=== PATIENT | female | born 1995 | race American Indian/Alaskan Native ===

== ENCOUNTER 2018-05-27 06:55 | Emergency (ER) | payer BC ==
[2018-05-27 07:02] VITALS: BP 105/69; PULSE 100; RESP 18; TEMP 98.4; O2SAT 100
--- NOTE | 2018-05-27 07:53 | C.PDOC ---
History Of Present Illness 23 y/o female presents to ED with c/o "pins and needles" sensation to bilateral hands and feet for 1 month. Patient also complaints of irregularity on menses, states she is not getting menses every month. Patient denies injury, weakness, nausea, vomiting, fever, chills or any other complaints at this time. Time Seen by Provider: 05/27/18 07:28 Chief Complaint (Nursing): Finger,Hand,&Wrist History Per: Patient History/Exam Limitations: no limitations Onset/Duration Of Symptoms: Days Current Symptoms Are (Timing): Still Present Past Medical History Reviewed: Historical Data, Nursing Documentation, Vital Signs Vital Signs: Last Vital Signs Temp 98.4 F 05/27/18 07:00 Pulse 100 H 05/27/18 07:00 Resp 18 05/27/18 07:00 BP 105/69 05/27/18 07:00 Pulse Ox 100 05/27/18 08:59 - Medical History PMH: No Chronic Diseases Surgical History: No Surg Hx Family History: States: No Known Family Hx - Social History Hx Alcohol Use: Yes Hx Substance Use: No - Immunization History Hx Tetanus Toxoid Vaccination: No Hx Influenza Vaccination: No Hx Pneumococcal Vaccination: No Review Of Systems Constitutional: Negative for: Fever, Chills Gastrointestinal: Negative for: Nausea, Vomiting Musculoskeletal: Positive for: Hand Pain, Foot Pain Skin: Negative for: Rash Neurological: Negative for: Weakness, Numbness Physical Exam - Physical Exam Appears: Non-toxic, No Acute Distress Skin: Warm, Dry, No Rash Head: Atraumatic, Normacephalic Eye(s): bilateral: Normal Inspection Oral Mucosa: Moist Neck: Normal ROM, Supple Extremity: Tenderness (bilateral hands on palpation), Capillary Refill (<2 seconds), No Deformity, No Swelling Extremity: Bilateral: Normal ROM Pulses: Left Radial: Normal, Right Radial: Normal Neurological/Psych: Oriented x3, Normal Speech, Normal Motor, Normal Sensation ED Course And Treatment - Laboratory Results Result Diagrams: 05/27/18 08:25 05/27/18 08:25 Lab Interpretation: Normal O2 Sat by Pulse Oximetry: 100 (RA) Pulse Ox Interpretation: Normal Progress Note: Blood work, UA ordered. Motrin administered. On re-evaluation neuro intact Reassessment Condition: Improved Disposition Counseled Patient/Family Regarding: Studies Performed, Diagnosis - Disposition Referrals: 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 - Scribe Statement The provider has reviewed the documentation as recorded by the Scribconrado Sofia All medical record entries made by the Taylor were at my direction and personally dictated by me. I have reviewed the chart and agree that the record accurately reflects my personal performance of the history, physical exam, medical decision making, and the department course for this patient. I have also personally directed, reviewed, and agree with the discharge instructions and disposition.
[2018-05-27 08:29] LABS: BASO # 0.1 K/uL (0.0-0.2); BASO % 0.9 % (0.0-2.0); EOS # 0.1 K/uL (0.0-0.7); EOS % 1.9 % (0.0-4.0); HEMOGLOBIN 13.4 g/dL (11.0-16.0); LYMPH # 2.3 K/uL (1.0-4.3); LYMPH % 36.1 % (20.0-40.0); MEAN CELL VOLUME 89.8 fL (81.0-99.0); MEAN CORPUSCULAR HEMOGLOBIN 30.9 pg (27.0-31.0); MEAN CORPUSCULAR HGB CONC 34.4 g/dL (33.0-37.0); MEAN PLATELET VOLUME 8.3 fL (7.2-11.7); MONO # 0.6 K/uL (0.0-0.8); MONO % 8.9 % (0.0-10.0); NEUT # 3.3 K/uL (1.8-7.0); NEUT % 52.2 % (50.0-75.0); NRBC % 0.1 % (0.0-2.0); RBC 4.32 Mil/uL (3.80-5.20); RED CELL DISTRIBUTION WIDTH 13.7 % (11.5-14.5); WHITE BLOOD COUNT 6.3 K/uL (4.8-10.8)
[2018-05-27 08:36] LABS: HCG,QUALITATIVE URINE NEGATIVE (NEGATIVE)
[2018-05-27 08:42] LABS: SQUAMOUS EPITHIAL 10 /hpf (0-5); URINE BACTERIA RARE (<OCC); URINE BILIRUBIN NEGATIVE (NEGATIVE); URINE BLOOD NEGATIVE (NEGATIVE); URINE CLARITY Hazy (Clear); URINE COLOR Yellow (YELLOW); URINE GLUCOSE (UA) NORMAL (Normal); URINE LEUKOCYTE ESTERASE 2+ Leu/uL (Negative); URINE PROTEIN NEGATIVE (NEGATIVE)
[2018-05-27 08:43] LABS: BLOOD UREA NITROGEN 12 mg/dL (7-17); CALCIUM 9.8 mg/dl (8.6-10.4); GFR AFRICAN-AMERICAN > 60; GFR NON-AFRICAN AMERICAN > 60
== END 2018-05-27 09:27 | disposition home or self-care (01) ==
LOC: C.ER 06:55
DX: R20.2 Paresthesia of skin (principal)

== ENCOUNTER 2018-10-18 11:57 | Emergency (ER) | payer BC, OTHER ==
[2018-10-18 12:42] LABS: HCG,QUALITATIVE URINE NEGATIVE (NEGATIVE)
[2018-10-18 13:16] LABS: SQUAMOUS EPITHIAL 21 /hpf (0-5); URINE BACTERIA RARE (<OCC); URINE BILIRUBIN NEGATIVE (NEGATIVE); URINE BLOOD 1+ (NEGATIVE); URINE CLARITY Hazy (Clear); URINE COLOR Yellow (YELLOW); URINE GLUCOSE (UA) NORMAL (Normal); URINE LEUKOCYTE ESTERASE 3+ Leu/uL (Negative); URINE PROTEIN 1+ mg/dL (NEGATIVE)
--- NOTE | 2018-10-18 13:33 | C.PDOC ---
History Of Present Illness 23 y/o female presents to ED complaining of vaginal burning and thick white discharge for the last 2 days. States that she was seen by OBGYN one month ago and was diagnosed with bacterial vaginosis. Patient was treated with PO medications. States she was tested for STD which was negative. Denies dysuria, pelvic pain, or vaginal bleeding. Time Seen by Provider: 10/18/18 12:41 Chief Complaint (Nursing): Female Genitourinary History Per: Patient History/Exam Limitations: no limitations Onset/Duration Of Symptoms: Days Current Symptoms Are (Timing): Still Present Past Medical History Reviewed: Historical Data, Nursing Documentation, Vital Signs - Medical History PMH: Denies: Chronic Kidney Disease Family History: States: No Known Family Hx - Social History Hx Alcohol Use: Yes Hx Substance Use: No - Immunization History Hx Tetanus Toxoid Vaccination: No Hx Influenza Vaccination: No Hx Pneumococcal Vaccination: No Review Of Systems Genitourinary: Positive for: Vaginal Discharge (thick and white), Other (Vaginal burning). Negative for: Dysuria, Vaginal Bleeding, Pelvic Pain Physical Exam - Physical Exam Appears: Non-toxic, No Acute Distress Skin: Warm, Dry Head: Atraumatic, Normacephalic Eye(s): bilateral: Normal Inspection Oral Mucosa: Moist Chest: Symmetrical Cardiovascular: Rhythm Regular, No Murmur Respiratory: Normal Breath Sounds, No Rales, No Rhonchi, No Wheezing Gastrointestinal/Abdominal: Soft, No Tenderness Pelvic: Vaginal Discharge (thick white vaginal discharge), No Cervical Motion Tenderness, No Adnexal Tenderness, Other (Labia appeared irritated and erythe matous) Extremity: Bilateral: Atraumatic, Normal Color And Temperature, Normal ROM Neurological/Psych: Oriented x3, Normal Speech ED Course And Treatment O2 Sat by Pulse Oximetry: 98 (RA) Pulse Ox Interpretation: Normal Progress Note: Urine preg ordered. Gave patient diflucan for yeast infection and did chlamydia/gonorrhea swab. Disposition Counseled Patient/Family Regarding: Diagnosis, Need For Followup, Rx Given - Disposition Referrals: [facility] [Outside] Disposition: HOME/ ROUTINE Disposition Time: 13:45 Condition: STABLE Additional Instructions: FOLLOW UP WITH YOUR MANAGING PARTNER WITHIN 1 WEEK USE MEDICATION IN 72 HRS IF SYMPTOMS PERSIST I WILL CALL YOU IF SWAB RESULTS ARE POSITIVE NO SEX X 1 WEEK RETURN TO ER IF SYMPTOMS WORSEN Prescriptions: Fluconazole [Diflucan] 150 mg PO DAILY #1 tab Instructions: Vaginal Yeast Infection (DC) Forms: [employer] (Azeri) Print Language: NORWEGIAN - Clinical Impression Clinical Impression: Vaginal candidiasis - Scribe Statement The provider has reviewed the documentation as recorded by the Sergioibe Jacque James Provider Attestation: All medical record entries made by the Scribe were at my direction and personally dictated by me. I have reviewed the chart and agree that the record accurately reflects my personal performance of the history, physical exam, medical decision making, and the department course for this patient. I have also personally directed, reviewed, and agree with the discharge instructions and disposition.
[2018-10-18 13:37] VITALS: BP 132/72; PULSE 78; RESP 16; O2SAT 98
== END 2018-10-18 13:39 | disposition home or self-care (01) ==
LOC: C.ER 11:57
DX: B37.3 Candidiasis of vulva and vagina (principal)

== ENCOUNTER 2018-12-05 15:30 | Emergency (ER) | payer BC, OTHER ==
[2018-12-05 15:39] VITALS: BP 125/81; PULSE 103; RESP 16; TEMP 98.2; O2SAT 99
--- NOTE | 2018-12-05 16:29 | C.PDOC ---
History Of Present Illness 23 year old female presents to the emergency department with complaints of flu- like symptoms, body aches, cough, sore throat, and two days of diarrhea (now resolved). Patient denies abdominal pain, and recent sick contact. Patient states that she has not received the flu vaccination this season. Time Seen by Provider: 12/05/18 16:02 Chief Complaint (Nursing): Cough, Cold, Congestion History Per: Patient History/Exam Limitations: no limitations Onset/Duration Of Symptoms: Days (2) Current Symptoms Are (Timing): Still Present Location Of Pain: Throat Associated Symptoms: Sore Throat, Cough, Myalgias, Diarrhea Past Medical History Reviewed: Historical Data, Nursing Documentation, Vital Signs Vital Signs: Last Vital Signs Temp 98.2 F 12/05/18 15:36 Pulse 103 H 12/05/18 15:36 Resp 16 12/05/18 15:36 BP 125/81 12/05/18 15:36 Pulse Ox 99 12/05/18 15:36 - Medical History PMH: No Chronic Diseases Denies: Chronic Kidney Disease Surgical History: No Surg Hx Family History: States: No Known Family Hx - Social History Hx Alcohol Use: Yes Hx Substance Use: No - Immunization History Hx Tetanus Toxoid Vaccination: No Hx Influenza Vaccination: No Hx Pneumococcal Vaccination: No Review Of Systems Constitutional: Negative for: Fever ENT: Positive for: Throat Pain Respiratory: Positive for: Cough Gastrointestinal: Positive for: Diarrhea. Negative for: Nausea, Vomiting, Abdominal Pain Musculoskeletal: Positive for: Other (myalgias) Physical Exam - Physical Exam Appears: Non-toxic, No Acute Distress Skin: Normal Color, Warm, Dry Head: Atraumatic, Normacephalic Eye(s): bilateral: Normal Inspection, PERRL, EOMI Oral Mucosa: Moist Throat: Normal, No Erythema, No Exudate Neck: Normal, Supple Chest: Symmetrical, No Tenderness Cardiovascular: Rhythm Regular, No Murmur Respiratory: Normal Breath Sounds, No Rales, No Rhonchi, No Wheezing Gastrointestinal/Abdominal: Soft, No Tenderness, No Guarding, No Rebound Extremity: Normal ROM Neurological/Psych: Oriented x3, Normal Speech, Normal Cognition ED Course And Treatment O2 Sat by Pulse Oximetry: 99 (RA) Pulse Ox Interpretation: Normal Medical Decision Making Medical Decision Making: with flu like symptoms, for 7 days,, afebrile in ed. given length of symptoms, unlikely for tamilflu to be effective, will not prescrbied. supportive care. Disposition Counseled Patient/Family Regarding: Diagnosis, Need For Followup, Rx Given - Disposition Referrals: Jeovany Addison MD [Staff Provider] - Disposition: HOME/ ROUTINE Disposition Time: 16:27 Condition: GOOD Additional Instructions: Please drink increased fluids. Avoid dairy products. Tylenol for body aches and sore throat. Gargle with warm salty water several times a day. Follow up with your pmd in 1-2 days. Return to ER for any worse symptoms. 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 - Scribe Statement The provider has reviewed the documentation as recorded by the Scribe (Randall Del Valle) All medical record entries made by the Scribe were at my direction and personally dictated by me. I have reviewed the chart and agree that the record accurately reflects my personal performance of the history, physical exam, medical decision making, and the department course for this patient. I have also personally directed, reviewed, and agree with the discharge instructions and disposition.
== END 2018-12-05 16:36 | disposition home or self-care (01) ==
LOC: C.ER 15:30
DX: B34.9 Viral infection, unspecified (principal)

== ENCOUNTER 2019-02-11 10:24 | Emergency (ER) | payer BC, OTHER ==
[2019-02-11 10:38] VITALS: BP 118/63; PULSE 72; RESP 20; TEMP 98.3; O2SAT 100
--- NOTE | 2019-02-11 11:18 | RAD ---
PROCEDURE: Left Foot Radiographs. Three views. HISTORY: LEFT FOOT/2ND DIGIT PAIN R/O FX COMPARISON: None available. FINDINGS: BONES: No acute displaced fracture. JOINTS: No dislocation. SOFT TISSUES: Unremarkable. No evidence of radiopaque foreign body. OTHER FINDINGS: None. IMPRESSION: No acute displaced fracture, dislocation, or significant joint effusion identified. If symptoms persist, or if there is continued clinical concern, x-ray follow-up in 7-10 days should be considered.
--- NOTE | 2019-02-11 11:31 | C.PDOC ---
History Of Present Illness 23 y/o female presents to the ER complaining of left foot pain which has been present since last night. Patient states that there was loose door which fell on her foot.Patient reports that she has pain and swelling mainly over the left 2nd digit. She notes that she has some tingling sensation in the digit. Denies having weakness. Time Seen by Provider: 02/11/19 10:32 Chief Complaint (Nursing): Lower Extremity Problem/Injury History Per: Patient History/Exam Limitations: no limitations Onset/Duration Of Symptoms: Days Current Symptoms Are (Timing): Still Present Severity: Moderate Past Medical History Reviewed: Historical Data, Nursing Documentation, Vital Signs Vital Signs: Last Vital Signs Temp 98.3 F 02/11/19 10:31 Pulse 72 02/11/19 10:31 Resp 20 02/11/19 10:31 BP 118/63 02/11/19 10:31 Pulse Ox 100 02/11/19 10:31 - Medical History PMH: No Chronic Diseases Denies: Chronic Kidney Disease Surgical History: No Surg Hx Family History: States: No Known Family Hx - Social History Hx Alcohol Use: Yes Hx Substance Use: No - Immunization History Hx Tetanus Toxoid Vaccination: No Hx Influenza Vaccination: No Hx Pneumococcal Vaccination: No Review Of Systems Except As Marked, All Systems Reviewed And Found Negative. Musculoskeletal: Positive for: Foot Pain (left foot pain) Neurological: Negative for: Weakness Physical Exam - Physical Exam Appears: Non-toxic, No Acute Distress, Other (comfortable) Skin: Normal Color, Warm, Dry Head: Atraumatic, Normacephalic Eye(s): bilateral: Normal Inspection Nose: Normal Oral Mucosa: Moist Neck: Supple Chest: Symmetrical Extremity: No Normal ROM (decreased ROM in left 2nd toe due to pain), No Tend erness, Capillary Refill (< 2 seconds), Swelling (swelling to left 2nd toe) Pulses: Left Dorsalis Pedis: Normal Neurological/Psych: Oriented x3, Normal Speech, Normal Motor, Normal Sensation ED Course And Treatment O2 Sat by Pulse Oximetry: 100 (RA) Pulse Ox Interpretation: Normal - Other Rad X-Ray-Left Foot X-Ray: Viewed By Me, Read By Radiologist Interpretation: PROCEDURE: Left Foot Radiographs. Three views. HISTORY: LEFT FOOT/2ND DIGIT PAIN R/O FX. COMPARISON: None available. FINDINGS: BONES: No acute displaced fracture. JOINTS: No dislocation. SOFT TISSUES: Unremarkable. No evidence of radiopaque foreign body. OTHER FINDINGS: None. IMPRESSION: No acute displaced fracture, dislocation, or significant joint effusion identified. If symptoms persist, or if there is continued clinical concern, x-ray follow-up in 7-10 days should be considered. Progress Note: X-Ray-Left Foot ordered and reviewed.Patient treated with Tylenol PO. Patient has been discharged and instructed to follow up with podiatry in 1 week. Disposition Counseled Patient/Family Regarding: Diagnosis, Need For Followup, Rx Given - Disposition Referrals: [facility] [Outside] [facility] Clinic [Outside] Disposition: HOME/ ROUTINE Disposition Time: 11:30 Condition: STABLE Additional Instructions: FOLLOW UP WITH PODIATRY WITHIN 1 WEEK USE PAIN MEDICATION NEEDED ELEVATE FOOT RETURN TO ER IF SYMPTOMS WORSEN Prescriptions: Ibuprofen [Motrin Tab] 600 mg PO Q6 PRN #30 tab PRN Reason: fever/pain Instructions: Contusion (DC) Forms: [employer] (Mongolian), School Excuse, Work Excuse Print Language: SWAZI - POA Present On Arrival: Falls Or Trauma - Clinical Impression Clinical Impression: Contusion of toe of left foot - Scribe Statement The provider has reviewed the documentation as recorded by the Taylor Willard Provider Attestation: All medical record entries made by the Taylor were at my direction and personall y dictated by me. I have reviewed the chart and agree that the record accurately reflects my personal performance of the history, physical exam, medical decision making, and the department course for this patient. I have also personally directed, reviewed, and agree with the discharge instructions and disposition.
== END 2019-02-11 11:49 | disposition home or self-care (01) ==
LOC: C.ER 10:24
DX: S90.122A Contusion of left lesser toe(s) without damage to nail, initial encounter (principal); W20.8XXA Other cause of strike by thrown, projected or falling object, initial encounter

== ENCOUNTER 2019-03-23 10:43 | Emergency (ER) | payer BC, OTHER ==
[2019-03-23 10:51] VITALS: TEMP 98.5; O2SAT 100
--- NOTE | 2019-03-23 11:38 | C.PDOC ---
Time Seen by Provider: 03/23/19 11:26 Chief Complaint (Nursing): Lower Extremity Problem/Injury Past Medical History Vital Signs: Last Vital Signs Temp 98.5 F 03/23/19 10:48 Pulse 81 03/23/19 10:48 Resp 20 03/23/19 10:48 BP 118/85 03/23/19 10:48 Pulse Ox 100 03/23/19 10:48 Primary Care Provider: Jeovany Addison - Medical History PMH: Denies: Chronic Kidney Disease - Social History Hx Alcohol Use: Yes Hx Substance Use: No - Immunization History Hx Tetanus Toxoid Vaccination: No Hx Influenza Vaccination: No Hx Pneumococcal Vaccination: No ED Course And Treatment O2 Sat by Pulse Oximetry: 100 Disposition - Disposition
--- NOTE | 2019-03-23 11:48 | C.PDOC ---
History Of Present Illness Patient is a 24 year old female who presents to the ED c/o exacerbated bilateral knee pain x several days. Patient admits to a history of knee pain "since childhood", but states that the pain is becoming worse. She reports that she now sleeps with a pillow between her knees to alleviate her symptoms and notes limited relief with Tylenol. She states that the pain is worse in front of the knees and only with weight baring. Patient admits to a history of track running when younger. She denies any trauma or other associated symptoms. CO EXAC B/L KNEES X SEV DAYS. PS HO INTERMIT KNEE PAIN "SINCE CHILDHOOD" PAIN BECOMING WORSE. NOW SLEEPS WITH PILLOW BETWEEN KNEES TO ALLEVIATE SX. PAIN WORSE IN FRONT OF KNEE, ONLY W WT BEARING. HO TRACK RUNNING WHEN YOUNGER. LIMITED RELIEF W TYLENOL. NO TRAUMA, OTHER ASSOC SX EXAM NAD EXT B/L KNEES NO SWELL, FOCAL TEND. FULL AROM WO DIFF. SKIN INTACT NEURO INTACT Time Seen by Provider: 03/23/19 11:26 Chief Complaint (Nursing): Lower Extremity Problem/Injury History Per: Patient History/Exam Limitations: no limitations Onset/Duration Of Symptoms: Days Current Symptoms Are (Timing): Still Present Recent travel outside of the [place]: No Additional History Per: Patient Past Medical History Reviewed: Historical Data, Nursing Documentation, Vital Signs Vital Signs: Last Vital Signs Temp 98.5 F 03/23/19 10:48 Pulse 81 03/23/19 10:48 Resp 20 03/23/19 10:48 BP 118/85 03/23/19 10:48 Pulse Ox 100 03/23/19 11:38 Primary Care Provider: Jeovany Addison - Medical History PMH: No Chronic Diseases Denies: Chronic Kidney Disease Surgical History: No Surg Hx Family History: States: No Known Family Hx - Social History Hx Alcohol Use: Yes Hx Substance Use: No - Immunization History Hx Tetanus Toxoid Vaccination: No Hx Influenza Vaccination: No Hx Pneumococcal Vaccination: No Review Of Systems Except As Marked, All Systems Reviewed And Found Negative. Musculoskeletal: Positive for: Leg Pain (bilateral knee pain) Neurological: Negative for: Weakness, Numbness, Other (tingling) Physical Exam - Physical Exam Appears: Non-toxic, No Acute Distress Skin: Warm, Dry, Other (SKIN INTACT) Head: Atraumatic, Normacephalic Eye(s): bilateral: Normal Inspection Chest: Symmetrical, No Deformity Cardiovascular: Rhythm Regular, No Murmur Respiratory: Other (NARD) Extremity: Tenderness (B/L KNEES NO SWELL, FOCAL TEND. FULL AROM WO DIFF.) Neurological/Psych: Oriented x3, Normal Speech, Normal Cognition, Normal Motor, Normal Sensation, Normal Reflexes, Other (NEURO INTACT) ED Course And Treatment O2 Sat by Pulse Oximetry: 100 (on RA) Pulse Ox Interpretation: Normal Progress Note: Plan: Motrin 600mg PO Disposition Counseled Patient/Family Regarding: Diagnosis, Need For Followup, Rx Given - Disposition Referrals: Alberto Horn III, MD [Staff Provider] - [facility] [Outside] [facility] [Outside] Disposition: HOME/ ROUTINE Disposition Time: 11:47 Condition: IMPROVED Additional Instructions: CONTINUE TYLENOL DIRECTED. TAKE MOTRIN PRESCRIBED. FOLLOW UP WITH ORTHOPEDICS Prescriptions: Ibuprofen [Motrin] 600 mg PO Q6 #30 tab Instructions: Chronic Knee Pain (DC) Forms: [employer] (Icelandic), School Excuse - Clinical Impression Clinical Impression: Chronic knee pain - Scribe Statement The provider has reviewed the documentation as recorded by the Scribconrado Balderrama All medical record entries made by the Scribe were at my direction and personally dictated by me. I have reviewed the chart and agree that the record accurately reflects my personal performance of the history, physical exam, medical decision making, and the department course for this patient. I have also personally directed, reviewed, and agree with the discharge instructions and disposition.
[2019-03-23 11:58] VITALS: BP 111/76; PULSE 85; RESP 16
== END 2019-03-23 11:58 | disposition home or self-care (01) ==
LOC: C.ER 10:43
DX: M25.562 Pain in left knee (principal); M25.561 Pain in right knee; G89.29 Other chronic pain